=== PATIENT | female | born 1970 | race Asian ===

== ENCOUNTER 2018-08-29 09:58 | Emergency (ER) | payer SELFPAY ==
[2018-08-29 10:13] VITALS: BP 144/90
--- NOTE | 2018-08-29 10:57 | ER Document Report ---
ED Medical Screen (RME) - General Chief Complaint: Abdominal Pain Stated Complaint: ABDOMINAL PAIN Time Seen by Provider: 08/29/18 10:52 TRAVEL OUTSIDE OF THE [place] IN LAST 30 DAYS: No - HPI Notes: 08/29/18 10:56 Pain behind her bellybutton patient has erythema and drainage from the bellybutton - Related Data Allergies/Adverse Reactions: No Known Allergies Allergy (Unverified 08/29/18 10:00) Past Medical History - Social History Chew tobacco use (# tins/day): No Frequency of alcohol use: None Drug Abuse: None - Past Medical History Cardiac Medical History: Reports: Hx Hypertension Renal/ Medical History: Denies: Hx Peritoneal Dialysis Past Surgical History: Reports: Hx Tubal Ligation Review of Systems - Review of Systems Gastrointestinal: Abdominal pain Physical Exam - Vital signs Vitals: Temp Pulse Resp BP Pulse Ox 98.7 F 78 16 144/90 H 97 08/29/18 10:11 08/29/18 10:11 08/29/18 10:11 08/29/18 10:11 08/29/18 10:11 - Abdominal Inspection: Obese Distension: No distension Bowel sounds: Normal Tenderness: Other - Erythema around the umbilicus with induration and purulent drainage from the bellybutton Course - Vital Signs Vital signs: Temp Pulse Resp BP Pulse Ox 98.7 F 78 16 144/90 H 97 08/29/18 10:11 08/29/18 10:11 08/29/18 10:11 08/29/18 10:11 08/29/18 10:11 Doctor's Discharge - Discharge Referrals: MARIUM ANDERSON MD [Primary Care Provider] - Follow up as needed
[2018-08-29 11:37] LABS: ABSOLUTE BASOPHILS # (AUTO) 0.1 10^3/uL (0.0-0.2); ABSOLUTE EOSINOPHILS # (AUTO) 0.1 10^3/uL (0.0-0.6); ABSOLUTE LYMPHOCYTES (AUTO) 1.7 10^3/uL (0.5-4.7); ABSOLUTE MONOCYTES (AUTO) 0.8 10^3/uL (0.1-1.4); ABSOLUTE NEUT (AUTO) 10.7 10^3/uL (1.7-8.2); BASOPHILS % (AUTO) 0.5 % (0-2); EOSINOPHILS % (AUTO) 0.5 % (0-6); HEMATOCRIT 38.6 % (36.0-47.0); LYMPHOCYTES % (AUTO) 12.7 % (13-45); MEAN CORPUSCULAR HEMOGLOBIN 25.8 pg (27.0-33.4); MEAN CORPUSCULAR HGB CONC 33.5 g/dL (32.0-36.0); MEAN CORPUSCULAR VOLUME 77 fl (80-97); PLATELET COUNT 437 10^3/uL (150-450); RED BLOOD COUNT 5.03 10^6/uL (3.72-5.28); RED CELL DISTRIBUTION WIDTH 13.7 % (11.5-14.0); SEGMENTED NEUTROPHILS % (AUTO) 80.3 % (42-78); TOTAL CELLS COUNTED % (AUTO) 100 %; WHITE BLOOD COUNT 13.4 10^3/uL (4.0-10.5)
[2018-08-29 12:34] LABS: ALANINE AMINOTRANSFERASE 22 U/L (9-52); ALKALINE PHOSPHATASE 55 U/L (38-126); ANION GAP 7 (5-19); ASPARTATE AMINO TRANSFERASE 18 U/L (14-36); BILIRUBIN,DIRECT 0.2 mg/dL (0.0-0.4); BILIRUBIN,TOTAL 0.7 mg/dL (0.2-1.3); BLOOD UREA NITROGEN 13 mg/dL (7-20); CALCIUM 8.5 mg/dL (8.4-10.2); CARBON DIOXIDE 27 mmol/L (22-30); CHLORIDE 104 mmol/L (98-107); GLUCOSE 116 mg/dL (75-110); POTASSIUM 4.5 mmol/L (3.6-5.0); SODIUM 138.3 mmol/L (137-145)
--- NOTE | 2018-08-29 13:02 | ER Document Report ---
ED Skin Rash/Insect Bite/Abscs - General Chief Complaint: Abdominal Pain Stated Complaint: ABDOMINAL PAIN Time Seen by Provider: 08/29/18 10:52 Notes: 47-year-old female to the emergency department for evaluation of periumbilical pain and redness. Patient states that she noticed the pain around Monday. Has gotten worse throughout the day. Noticed it was extremely warm and red and tender to the touch. Right around the umbilicus. No fever. He did have some chills. Denies any other symptoms of her head, eyes, ears, nose, throat, skin other than around the bellybutton extremities or other issues at this time. TRAVEL OUTSIDE OF THE [place] IN LAST 30 DAYS: No - HPI Patient complains to provider of: Skin rash/lesion, Tender/swollen area Onset/Duration: Gradual, Worse Quality of pain: Achy, Throbbing Severity: Moderate Pain Level: 3 Skin Character: Abscess, Erythema, Swelling Skin Temperature: Hot Quality of rash: Painful - Related Data Allergies/Adverse Reactions: No Known Allergies Allergy (Unverified 08/29/18 10:00) Past Medical History - General Information source: Patient - Social History Smoking Status: Never Smoker Chew tobacco use (# tins/day): No Frequency of alcohol use: None Drug Abuse: None Lives with: Spouse/Significant other Family History: Reviewed & Not Pertinent Patient has suicidal ideation: No Patient has homicidal ideation: No - Past Medical History Cardiac Medical History: Reports: Hx Hypertension Renal/ Medical History: Denies: Hx Peritoneal Dialysis Past Surgical History: Reports: Hx Tubal Ligation Review of Systems - Review of Systems Notes: Constitutional: denies: Chills, Diaphoresis, Fever, Malaise, Weakness EENT: denies: Eye discharge, Blurred vision, Tearing, Double vision, Nose congestion, Nose discharge, Throat swelling, Mouth pain Cardiovascular: denies: Palpitations, Heart racing, Orthopnea, Dyspnea, Chest pain Respiratory: denies: Cough, Hurts to breathe, Wheezing, Shortness of breath Gastrointestinal: denies: Diarrhea, Nausea, Vomiting, Black stools, bright red blood in stool. Does complain of periumbilical abdominal pain Genitourinary: denies: Burning, Dysuria, Discharge, Frequency, Flank pain, Hematuria Musculoskeletal: denies: Joint pain, Joint swelling, Muscle pain, Muscle stiffness, back pain Hematologic/Lymphatic: denies: Anemia, Easy bleeding, Easy bruising, Blood clots Neurological/Psychological: denies: Confusion, Dementia, Depression, Loss of consciousness Skin: There is a red, erythematous, draining abscess appearance around the umbilicus. There is surrounding cellulitis. Physical Exam - Vital signs Vitals: Temp Pulse Resp BP Pulse Ox 98.7 F 78 16 144/90 H 97 08/29/18 10:02 08/29/18 10:02 08/29/18 10:02 08/29/18 10:02 08/29/18 10:02 Interpretation: Normal - General General appearance: Appears well, Alert - HEENT Head: Normocephalic, Atraumatic Eyes: Normal Pupils: PERRL - Respiratory Respiratory status: No respiratory distress Chest status: Nontender Breath sounds: Normal Chest palpation: Normal - Cardiovascular Rhythm: Regular Heart sounds: Normal auscultation Murmur: No - Abdominal Inspection: Normal Distension: No distension Bowel sounds: Normal Tenderness: Tender - To palpation around the umbilicus. Organomegaly: No organomegaly - Back Back: Normal, Nontender - Extremities General upper extremity: Normal inspection, Nontender, Normal color, Normal ROM , Normal temperature General lower extremity: Normal inspection, Nontender, Normal color, Normal ROM , Normal temperature, Normal weight bearing. No: Nusrat's sign - Neurological Neuro grossly intact: Yes Cognition: Normal Orientation: AAOx4 Kaitlyn Coma Scale Eye Opening: Spontaneous Kaitlyn Coma Scale Verbal: Oriented Kaitlyn Coma Scale Motor: Obeys Commands [place] Coma Scale Total: 15 Speech: Normal Motor strength normal: LUE, RUE, LLE, RLE Sensory: Normal - Psychological Associated symptoms: Normal affect, Normal mood - Skin Notes: There is a tender and red area of erythema with some mild cellulitis around the umbilicus. There is active drainage coming out of the umbilicus which is malodorous. Course - Re-evaluation Re-evalutation: 08/29/18 14:36 Laboratory 08/29/18 08/29/18 08/29/18 11:00 11:00 11:00 WBC 13.4 H RBC 5.03 Hgb 13.0 Hct 38.6 MCV 77 L MCH 25.8 L MCHC 33.5 RDW 13.7 Plt Count 437 Seg Neutrophils % 80.3 H Lymphocytes % 12.7 L Monocytes % 6.0 Eosinophils % 0.5 Basophils % 0.5 Absolute Neutrophils 10.7 H Absolute Lymphocytes 1.7 Absolute Monocytes 0.8 Absolute Eosinophils 0.1 Absolute Basophils 0.1 Sodium Cancelled Potassium Cancelled Chloride Cancelled Carbon Dioxide Cancelled Anion Gap Cancelled BUN Cancelled Creatinine Cancelled Est GFR ( Amer) Cancelled Est GFR (Non-Af Amer) Cancelled Glucose Cancelled Calcium Cancelled Total Bilirubin Cancelled Direct Bilirubin Cancelled Neonat Total Bilirubin Cancelled Neonat Direct Bilirubin Cancelled Neonat Indirect Bili Cancelled AST Cancelled ALT Cancelled Alkaline Phosphatase Cancelled Total Protein Cancelled Albumin Cancelled Serum HCG, Qual Cancelled 08/29/18 08/29/18 11:54 11:54 WBC RBC Hgb Hct MCV MCH MCHC RDW Plt Count Seg Neutrophils % Lymphocytes % Monocytes % Eosinophils % Basophils % Absolute Neutrophils Absolute Lymphocytes Absolute Monocytes Absolute Eosinophils Absolute Basophils Sodium 138.3 Potassium 4.5 Chloride 104 Carbon Dioxide 27 Anion Gap 7 BUN 13 Creatinine 0.68 Est GFR ( Amer) > 60 Est GFR (Non-Af Amer) > 60 Glucose 116 H Calcium 8.5 Total Bilirubin 0.7 Direct Bilirubin 0.2 Neonat Total Bilirubin Not Reportable Neonat Direct Bilirubin Not Reportable Neonat Indirect Bili Not Reportable AST 18 ALT 22 Alkaline Phosphatase 55 Total Protein 8.0 Albumin 4.0 Serum HCG, Qual NEGATIVE Abdomen/Pelvis CT 08/29/18 10:56 IMPRESSION: 3 x 2.4 x 1.7 cm abscess in the umbilicus with periumbilical anterior abdominal wall cellulitis I have consulted with general surgery to explore this area a little deeper. Currently Dr. Morales is going to I&D it here in the ER. I am giving her some antibiotics and pain meds at this time. Anticipate she will go home shortly. 08/29/18 15:42 Dr. Morales has seen. Has performed I&D. Recommends Augmentin for 2 weeks. Will follow up with surgery in 2 weeks. - Vital Signs Vital signs: Temp Pulse Resp BP Pulse Ox 98.7 F 78 16 144/90 H 97 08/29/18 10:11 08/29/18 10:11 08/29/18 10:11 08/29/18 10:11 08/29/18 10:11 - Laboratory Result Diagrams: 08/29/18 11:00 08/29/18 11:54 Laboratory results interpreted by me: 08/29/18 08/29/18 11:00 11:54 WBC 13.4 H MCV 77 L MCH 25.8 L Seg Neutrophils % 80.3 H Lymphocytes % 12.7 L Absolute Neutrophils 10.7 H Glucose 116 H Discharge - Discharge Clinical Impression: Abscess or cellulitis of umbilicus Condition: Good Disposition: HOME, SELF-CARE Instructions: Abscess ([facility]), Post Incision and Drainage Additional Instructions: Continue with dressing changes and wound packing with the antibiotic ointment placed in the umbilicus wound. Follow the instructions that you were given. Return for any worsening symptoms or concerns. Prescriptions: Amox Tr/Potassium Clavulanate [Augmentin 875-125 Tablet] 1 tab PO BID 10 Days # 28 tablet Hydrocodone/Acetaminophen [[place] 5-325 mg Tablet] 1 tab PO TID 3 Days #9 tablet Mupirocin [Bactroban 2% Ointment 22 gm] 1 applic TP BID #1 tube Referrals: TARIQ MORALES MD [[facility]] - 08/13/19
--- NOTE | 2018-08-29 13:19 | RADIOLOGY REPORT (SQ) ---
EXAM DESCRIPTION: CT ABD/PELVIS WITH IV ONLY COMPLETED DATE/TIME: 08/29/2018 12:55 pm REASON FOR STUDY: Abdominal wall abscess versus cellulitis COMPARISON: None. TECHNIQUE: CT scan of the abdomen and pelvis performed using helical scanning technique with dynamic intravenous contrast injection. No oral contrast. Images reviewed with lung, soft tissue, and bone windows. Reconstructed coronal and sagittal MPR images reviewed. Delayed images for evaluation of the urinary system also acquired. All images stored on PACS. All CT scanners at this facility use dose modulation, iterative reconstruction, and/or weight based d osing when appropriate to reduce radiation dose to as low as reasonably achievable (ALARA). [facility]: Dose Right [facility]: CareDose [facility]: Dose Right [facility]: Teradose 4D [facility]: ThirdMotion CONTRAST TYPE AND DOSE: contrast/concentration: Isovue 350.00 mg/ml; Total Contrast Delivered: 99.0 ml; Total Saline Delivered: 57.0 ml RENAL FUNCTION: Creatinine 0.68 RADIATION DOSE: CT Rad equipment meets quality standard of care and radiation dose reduction techniq ues were employed. CTDIvol: 18.2 - 20.2 mGy. DLP: 2261 mGy-cm.. LIMITATIONS: None. FINDINGS: 2.4 cm craniocaudad x 3 cm AP x 1.7 cm transverse abscess in the umbilicus itself, with land rrounding periumbilical cellulitis in the anterior abdominal wall fat. These changes are best shown on axial image 65, sagittal image 60, and coronal images 4 through 17. No umbilical hernia. LOWER CHEST: No significant findings. No nodules or infiltrates. LIVER: Normal size. No masses. No dilated ducts. SPLEEN: Normal size. No focal lesions. PANCREAS: No masses. No significant calcifications. No adjacent inflammation or peripancreatic fluid collections. Pancreatic duct not dilated. GALLBLADDER: No identified stones by CT criteria. No inflammatory changes to suggest cholecystitis. ADRENAL GLANDS: No significant masses or asymmetry. RIGHT KIDNEY AND URETER: No solid masses. No significant calcifications. No hydronephrosis or hyd roureter. LEFT KIDNEY AND URETER: No solid masses. No significant calcifications. No hydronephrosis or hydr oureter. AORTA AND VESSELS: No aneurysm. No dissection. Renal arteries, SMA, celiac without stenosis. RETROPERITONEUM: No retroperitoneal adenopathy, hemorrhage or masses. BOWEL AND PERITONEAL CAVITY: No masses or inflammatory changes. No free fluid or peritoneal masses. APPENDIX: Normal. PELVIS: No mass. No free fluid. Normal bladder. ABDOMINAL WALL: No masses. No hernias. BONES: No significant or acute findings. OTHER: No other significant finding. IMPRESSION: 3 x 2.4 x 1.7 cm abscess in the umbilicus with periumbilical anterior abdominal wall ritika lulitis TECHNICAL DOCUMENTATION: JOB ID: [id number] Quality ID # [id number]: Final reports with documentation of one or more dose reduction techniques (e.g., Au tomated exposure control, adjustment of the mA and/or kV according to patient size, use of iterative reconstruction technique) 2010 [employer]- All Rights Reserved Reading location - IP/workstation name: [email or web address]
[2018-08-29] MEDS ORDERED: AMPICILLIN SOD/SULBACTAM 3 GM VIAL IV ONE (13:42)
[2018-08-29] MEDS ORDERED: KETOROLAC TROMETHAMINE INJ/PF 30 MG/1 ML SDV IV ONE (13:46)
[2018-08-29] MEDS ORDERED: LIDOCAINE 1%/EPINEPHRINE INJ 20 ML VIAL ONE ×2 (14:37→14:47)
--- NOTE | 2018-08-29 14:41 | PDOC H&P ---
History of Present Illness Patient complains of: umbilical drainage History of Present Illness: AUGUSTINE MCCURDY is a 47 year old female with a 3 day hx of redness, pain, and drainage from the umbilicus. A CT scan has been done and it demonstrated an umbilical abscess without peritoneal or bowel involvement. Her WBC . 13.4 Past Medical History Cardiac Medical History: Reports: Hypertension Past Surgical History Past Surgical History: Reports: Tubal Ligation Social History Smoking Status: Never Smoker Frequency of Alcohol Use: None Hx Recreational Drug Use: No Hx Prescription Drug Abuse: No Family History Family History: Reviewed & Not Pertinent Parental Family History Reviewed: No Children Family History Reviewed: No Sibling(s) Family History Reviewed.: No Medication/Allergy Allergies/Adverse Reactions: No Known Allergies Allergy (Unverified 08/29/18 10:00) Physical Exam Vital Signs: Temp Pulse Resp BP Pulse Ox 98.7 F 78 16 144/90 H 97 08/29/18 10:11 08/29/18 10:11 08/29/18 10:11 08/29/18 10:11 08/29/18 10:11 Intake & Output 08/28/18 08/29/18 08/30/18 06:59 06:59 06:59 Weight 114.2 kg Results Laboratory Results: 08/29/18 11:00 08/29/18 11:54 08/29/18 08/29/18 08/29/18 11:00 11:00 11:00 WBC 13.4 H RBC 5.03 Hgb 13.0 Hct 38.6 MCV 77 L MCH 25.8 L MCHC 33.5 RDW 13.7 Plt Count 437 Seg Neutrophils % 80.3 H Lymphocytes % 12.7 L Monocytes % 6.0 Eosinophils % 0.5 Basophils % 0.5 Absolute Neutrophils 10.7 H Absolute Lymphocytes 1.7 Absolute Monocytes 0.8 Absolute Eosinophils 0.1 Absolute Basophils 0.1 Sodium Cancelled Potassium Cancelled Chloride Cancelled Carbon Dioxide Cancelled Anion Gap Cancelled BUN Cancelled Creatinine Cancelled Est GFR ( Amer) Cancelled Est GFR (Non-Af Amer) Cancelled Glucose Cancelled Calcium Cancelled Total Bilirubin Cancelled AST Cancelled ALT Cancelled Alkaline Phosphatase Cancelled Total Protein Cancelled Albumin Cancelled Serum HCG, Qual Cancelled 08/29/18 08/29/18 11:54 11:54 WBC RBC Hgb Hct MCV MCH MCHC RDW Plt Count Seg Neutrophils % Lymphocytes % Monocytes % Eosinophils % Basophils % Absolute Neutrophils Absolute Lymphocytes Absolute Monocytes Absolute Eosinophils Absolute Basophils Sodium 138.3 Potassium 4.5 Chloride 104 Carbon Dioxide 27 Anion Gap 7 BUN 13 Creatinine 0.68 Est GFR ( Amer) > 60 Est GFR (Non-Af Amer) > 60 Glucose 116 H Calcium 8.5 Total Bilirubin 0.7 AST 18 ALT 22 Alkaline Phosphatase 55 Total Protein 8.0 Albumin 4.0 Serum HCG, Qual NEGATIVE Impressions: Abdomen/Pelvis CT 08/29/18 10:56 IMPRESSION: 3 x 2.4 x 1.7 cm abscess in the umbilicus with periumbilical anterior abdominal wall cellulitis Assessment & Plan - Plan Summary Plan Summary: A/ Umbilical abscess in patient with obesity and prediabetes Slight leukocytosis (13.4) CT scan shows no peritoneal or bowel involvement P/ I&D umbilical abscess at bedside Discharge to home with Augmentin 875 mg po BID x 7days Replace packing with 4x4 soaked with triple antibiotic ointment Return to Surgery Clinic in 2 weeks for wound check, f/u with LNACE Galdamez call ER in 48-72 hrs for culture results
[2018-08-29] MEDS ORDERED: NEOMY/BACITRAC ZN/POLY OINT 15 GM TP ONE (14:42)
[2018-08-29] MEDS ORDERED: MORPHINE SULFATE 10 MG/ML INJ IV ONE (14:59)
[2018-08-29] MEDS ORDERED: ONDANSETRON HCL INJ/PF 4 MG/2 ML SDV IV ONE (14:59)
[2018-08-29] MEDS ORDERED: LIDOCAINE 1%/EPINEPHRINE INJ 20 ML VIAL INJ ONE (14:59)
--- NOTE | 2018-08-29 15:34 | Operative Report ---
Nonrecallable Operative Report DATE OF SURGERY: 08/29/18 PREOPERATIVE DIAGNOSIS: umbilical abscess POSTOPERATIVE DIAGNOSIS: same OPERATION: I&D umbilical abscess SURGEON: TARIQ MORALES ANESTHESIA: Local - 40 mL lidicaine with epi TISSUE REMOVED OR ALTERED: n/a COMPLICATIONS: n/a ESTIMATED BLOOD LOSS: < 5 Ml INTRAOPERATIVE FINDINGS: PURULENT COLLECTION PROCEDURE: see dictation
--- NOTE | 2018-08-29 15:47 | OPERATIVE REPORT E ---
Operative Report NAME: AUGUSTINE MCCURDY : 1970 AGE: 47Y DATE OF SURGERY: 08/29/2018 ROOM: PREOPERATIVE DIAGNOSIS: Umbilical abscess. POSTOPERATIVE DIAGNOSIS: Umbilical abscess. PROCEDURE: Incision and drainage of umbilical abscess. SURGEON: TARIQ MORALES M.D. [employer] II ASSEMBLER: none ANESTHESIA: About 40 mL of 1% lidocaine with epinephrine plus 10 mg IV push of morphine. COMPLICATIONS: None. BLOOD LOSS: Less than 5 mL. DRAINS: None. INDICATION AND FINDINGS: This is a 47-year-old who presented to the Emergency Room complaining of foul-smelling drainage, redness, and edema of the umbilicus. A CAT scan was done, revealing umbilical abscess. The decision was made to drain the abscess in the Emergency Room. DESCRIPTION OF PROCEDURE: The procedure was done in the Emergency Room. The patient was placed in a supine position. The umbilical area was prepped and draped in the usual fashion, infiltrated with lidocaine. A transverse incision was made over the umbilicus with a fair amount of purulent material which was drained. This was sent for aerobic and anaerobic culture and Gram stain. The area was then irrigated with normal saline, packed with triple antibiotic and packing strip, followed by a sterile dressings applied on the skin. The patient tolerated the procedure well and was discharged home in satisfactory condition. DISCHARGE INSTRUCTIONS: She was given instructions to follow up in the office in 2 weeks with LANCE Galdamez. Augmentin 875 mg p.o. b.i.d. x 5days, Tylenol or Aleve as needed for pain. Replace the bandages once or twice a day after shower. Apply triple antibiotic ointment to the wound and packing material. DICTATING PHYSICIAN: TARIQ MORALES M.D. [id number] PHY#: [id number] ID: [id number] JOB#: [id number] ACCT: [id number] cc:TARIQ MORALES M.D. > MTDD
== END 2018-08-29 16:05 | disposition home or self-care (01) ==
LOC: ER 09:58
DX: L02.211 Cutaneous abscess of abdominal wall (principal); L03.311 Cellulitis of abdominal wall; R10.33 Periumbilical pain; R21 Rash and other nonspecific skin eruption; I10 Essential (primary) hypertension
CPT/HCPCS: 99284; 96374; 96375; 36415; 87070; 87205; 84703; 85025; 87075; 87077; 80053; 87186; 74177; J0295; J1885; J2270; J3490; J2405